=== PATIENT | female | born 1945 | race Caucasian/White ===

== ENCOUNTER 2022-01-16 20:20 | Emergency (ER) | payer MEDICARE, OTHER ==
[2022-01-16] MEDS: Sodium Chloride 0.9% 10 ML Syringe FLUSH PRN ×2 (20:35→23:39)
[2022-01-16] MEDS ORDERED: Aspirin 81 MG Tab.Chew PO STA (20:40)
[2022-01-16] MEDS: Nitroglycerin 0.4 MG Tab.SL SL PRN ×3 (20:40→21:00)
[2022-01-16] MEDS ORDERED: Labetalol 20 MG/4 ML Syringe IVPUSH STA (20:45)
[2022-01-16 21:07] LABS: ESTIMATED GFR 47 mL/min (>60)
[2022-01-16] MEDS ORDERED: Labetalol 20 MG/4 ML Syringe IVPUSH ONE ×2 (21:07→21:32)
[2022-01-16] MEDS ORDERED: Cephalexin 500 MG Cap PO STA (22:16)
[2022-01-16] MEDS ORDERED: Diphtheria,Pertussis(Acell),Tetanus Vaccine 0.5 ML Syringe IM ONE (22:16)
[2022-01-16] MEDS ORDERED: amLODIPine 10 MG Tab PO STA (22:20)
[2022-01-16] MEDS ORDERED: Ketorolac 30 MG/ML SDV IVPUSH ONE (22:20)
[2022-01-16] MEDS ORDERED: Morphine 4 MG/ML VIAL IVPUSH ONE (23:13)
[2022-01-17 01:50] VITALS: BP 150/82; PULSE 52
== END 2022-01-17 00:50 | disposition home or self-care (01) ==
LOC: FB.ED 20:20
DX: R07.81 Pleurodynia (principal); I16.9 Hypertensive crisis, unspecified; E78.00 Pure hypercholesterolemia, unspecified; I10 Essential (primary) hypertension; E11.9 Type 2 diabetes mellitus without complications; F17.210 Nicotine dependence, cigarettes, uncomplicated; Z88.5 Allergy status to narcotic agent; Z79.899 Other long term (current) drug therapy; Z79.84 Long term (current) use of oral hypoglycemic drugs; Z90.710 Acquired absence of both cervix and uterus
CPT/HCPCS: 36415; 71045; 80053; 83880; 84484; 85025; 85610; 85730; 93005; 93010; 96374; 96375; 96376; 99284; 99285; A9270; J1885; J2270; J3490